=== PATIENT | male | born 1990 | race African-American/Black ===

== ENCOUNTER 2017-10-21 02:39 | Emergency (ER) | payer OTHER ==
--- NOTE | 2017-10-21 03:03 | PDOC ---
History of Present Illness - General Chief Complaint: Respiratory Stated Complaint: FEVER Time Seen by Provider: 10/21/17 02:55 History Source: Patient Exam Limitations: No Limitations - History of Present Illness Initial Comments: This is a 27 YOM with h/o heart murmur (diagnosed when he was a child and told it was benign) who p/w fever, nausea, mild frontal headache, head-to-toe body aches, malaise, feeling that he cannot completely empty his bladder, and worsened bloody bowel movements (has occasional mild rectal bleeding at baseline but had two BMs with large blood in toilet today). He notes measuring his oral temperature to be 104.4 at home today several hours after taking Advil , and this is what prompted him to come into the ED. His symptoms started about 24 hours ago, and prior to that he was feeling well except for seasonal allergies. He denies any known sick contacts. For the past two weeks he has been struggling with a back injury from working out at the gym and getting chiropractic adjustments for this. He denies any vomiting, diarrhea, constipation, chest pain, abdominal pain, SOB, cough, sore throat, burning/ strange smells/strange colors on urination, or other new symptoms. He denies drug use. Past History - Past Medical History Allergies/Adverse Reactions: Allergies Allergy/AdvReac Type Severity Reaction Status Date / Time No Known Allergies Allergy Verified 10/21/17 02:57 Home Medications: Ambulatory Orders NK [No Known Home Medication] 10/21/17 Review of Systems - Review of Systems Able to Perform ROS?: Yes Constitutional: Yes: Chills, Fever, Malaise. No: Unexplained wgt Loss HEENTM: No: Nose Congestion, Throat Pain Respiratory: No: Cough, Shortness of Breath Cardiac (ROS): No: Chest Pain, Palpitations ABD/GI: No: Constipated, Diarrhea, Nausea, Vomiting : No: Burning, Dysuria Musculoskeletal: Yes: Back Pain. No: Neck Pain Integumentary: No: Bruising, Rash Neurological: No: Headache, Numbness, Tingling, Weakness, Dizziness Endocrine: No: Unexplained Weight Gain, Unexplained Weight Loss *Physical Exam - Physical Exam General Appearance: Yes: Nourished, Appropriately Dressed, Mild Distress, Other (nontoxic and well appearing young adult male accompanied by father at bedside, warm to the touch, alert and oriented and answering questions appropriately) HEENT: positive: EOMI, Normal Voice, Hearing Grossly Normal. negative: Scleral Icterus (R), Scleral Icterus (L), Nasal Congestion Neck: positive: Trachea midline, Supple, Other (able to turn head 90 degrees to the right and left, look all the way up at the ceiling, and tuck his chin to his chest without issue or worsened pain). negative: Tender, Rigid Respiratory/Chest: positive: Lungs Clear, Normal Breath Sounds. negative: Respiratory Distress, Crackles, Rhonchi, Stridor, Wheezing Cardiovascular: positive: Regular Rhythm, Regular Rate, S1, S2. negative: Edema , JVD, Murmur Gastrointestinal/Abdominal: positive: Normal Bowel Sounds, Flat, Soft. negative : Tender, Organomegaly, Pulsatile Mass, Guarding Musculoskeletal: positive: Normal Inspection. negative: Decreased Range of Motion, Vertebral Tenderness Extremity: positive: Normal Capillary Refill, Normal Inspection, Normal Range of Motion. negative: Tender, Cyanosis Integumentary: positive: Normal Color, Dry, Warm. negative: Erythema, Rash, Bruising Neurologic: positive: inside sales trainer II-XII NML intact (grossly), Fully Oriented, Alert, Normal Mood/Affect, Normal Response, Motor Strength 5/5 Medical Decision Making - Medical Decision Making Young adult male patient p/w fever, nausea, head-to-toe body aches, worsened rectal bleeding. Initial Vital Signs Temp Pulse Resp BP Pulse Ox 101.4 F H 89 19 117/84 98 10/21/17 02:54 10/21/17 02:54 10/21/17 02:54 10/21/17 02:54 10/21/17 02:54 Exam: generally well appearing and nontoxic, warm to the touch, a/o x4 and answering appropriately, 2/6 systolic murmur. DDX IBNLT: viral syndrome, atypical PNA, meningitis, endocarditis, spinal epidural abscess, W/U ordered: TX ordered: EKG: CXR: Labs: CT: Repeat VS: Reassessment: ADMIT The patient is unsafe for discharge at this time. They require further hospital observation, workup, and treatment. Microblog sent to [facility] for admission. Spoke with [facility], in agreement patient to be admitted to: [id number] Decision to Admit order placed to [facility] covering attending. DISCHARGE The patient has gotten significant relief of symptoms with ED medications. Workup is not concerning for emergency-level pathology at this time. The patient is appropriate for discharge with close outpatient follow up. They are comfortable with this plan and will follow up with their PCP in 1-3 days. Return precautions are discussed and they will come back to the ER if necessary. 10/21/17 03:48 *DC/Admit/Observation/Transfer - Discharge Dispostion Condition at time of disposition: Fair - Referrals Referrals: ON STAFF,NOT [Primary Care Provider] - - Patient Instructions - Post Discharge Activity
[2017-10-21] MEDS ORDERED: ONDANSETRON 4 MG/2 ML VIAL IVPUSH ONE (03:11)
--- NOTE | 2017-10-21 03:13 | PDOC ---
Attending Attestation - Resident Resident Name: Oquendo,Tatiana - ED Attending Attestation I have performed the following: I have examined & evaluated the patient, The case was reviewed & discussed with the resident, I agree w/resident's findings & plan, Exceptions are as noted - HPI HPI: 10/21/17 03:12 27y M presents with fever, nausea, body aches, headache, malaise, urinary hesitancy with 2 BMs with bloody stool. no associated ovmiting, diarrhea, cough , sore throat, abd pain, diarrhea. No recent travel or known sick contacts. Pt notes he has a probably with constipation and typically has bloody stools after he strains, but does not recall straining today. on exam pt is well appearing in no distress, exam unremarakble beside warm skin normal ROM of neck, no signs of meningismus, neg kernigs/brudsinsky pulm exam cta abd soft nontender stool guaac multiple masses palable just proximal to anal verg, no external hemmroids noted, no stoolin rectal vault, but smear of blood on glove noted after retal exam cardiac exam no signfiicant MRGs ddx includes viral illness, occult infection including uti, pna will ck labs, lactic acid will hdyrate with fluids will give tylenol will reassess 10/21/17 05:39 lactic acid elevated to 2.4 labs otherwise unremabkle will continue fluid hydration and will recheck LA - Physicial Exam PE: 10/25/17 20:05 see above - Medical Decision Making lactic acid improved at discharge pt feeling improevd will dc back home with pm dfu and supportive care Heart Score/ECG Review - ECG Impressions Comment:: 10/21/17 05:28 Twelve-lead EKG was performed and reviewed by me. There is normal sinus rhythm with a normal rate. Rate of 70 TW abnormalities in the lateral leads
[2017-10-21] MEDS ORDERED: SODIUM CHLORIDE 0.9% 500 ML INFUS.BAG IV ONE ×2 (03:19→05:00)
[2017-10-21] MEDS ORDERED: ACETAMINOPHEN 1000 MG/100 ML VIAL (NON FORMULARY) IVPB ONE (03:19)
[2017-10-21] MEDS ORDERED: ACETAMINOPHEN INJECTION 100 ML IVPB ONE (03:42)
[2017-10-21 03:43] VITALS: BMI 27.7
[2017-10-21] MEDS ORDERED: ONDANSETRON 4 MG/2 ML VIAL ONE (03:43)
[2017-10-21 04:01] LABS: BASO % 0.5 % (0-2.0); EOS % 0.5 % (0-4.5); HEMOGLOBIN 14.5 GM/dL (11.7-16.9); LYMPH % 3.9 % (8-40); MCH 30.3 pg (25.7-33.7); MCHC 33.6 g/dl (32.0-35.9); MEAN CELL VOLUME 89.9 fl (80-96); MEAN PLT VOLUME 9.3 fl (7.5-11.1); MONO % 8.1 % (3.8-10.2); PLATELET COUNT 222 K/MM3 (134-434); RBC 4.78 M/mm3 (4.00-5.60); RDW 13.7 % (11.9-15.9)
[2017-10-21 04:03] LABS: URINE APPEARANCE CLEAR; URINE BILIRUBIN NEGATIVE (<2.0 mg/dL); URINE COLOR YELLOW; URINE GLUCOSE (UA) NEGATIVE (NEGATIVE); URINE KETONE NEGATIVE (NEGATIVE); URINE LEUK ESTERASE NEGATIVE (NEGATIVE); URINE NITRITE NEGATIVE (NEGATIVE); URINE PROTEIN NEGATIVE (NEGATIVE)
[2017-10-21 04:32] LABS: INR 1.24 (0.82-1.09)
[2017-10-21 04:43] LABS: ALBUMIN 3.9 g/dl (3.4-5.0); ALK PHOS 60 U/L (45-117); ANION GAP 6 (8-16); BILIRUBIN,TOTAL 0.6 mg/dL (0.2-1.0); BLOOD UREA NITROGEN 13 mg/dL (7-18); CALCIUM 8.2 mg/dL (8.5-10.1); CHLORIDE 105 mmol/L (98-107); CO2 28 mmol/L (21-32); CREATININE 1.1 mg/dL (0.7-1.3); GLUCOSE,RANDOM 89 mg/dL (74-106); MAGNESIUM 1.8 mg/dL (1.8-2.4); POTASSIUM 3.7 mmol/L (3.5-5.1); SGOT/AST 19 U/L (15-37); SGPT/ALT 29 U/L (12-78); SODIUM 139 mmol/L (136-145); TOT PROT 7.4 g/dl (6.4-8.2)
[2017-10-21] MEDS ORDERED: SODIUM CHLORIDE 1,000 ML IV STA (05:17)
--- NOTE | 2017-10-21 07:21 | PDOC ---
*Physical Exam - Vital Signs Last Vital Signs Temp Pulse Resp BP Pulse Ox 101.4 F H 89 19 117/84 98 10/21/17 02:54 10/21/17 02:54 10/21/17 02:54 10/21/17 02:54 10/21/17 02:54 ED Treatment Course - LABORATORY CBC & Chemistry Diagram: 10/21/17 03:50 10/21/17 03:50 - ADDITIONAL ORDERS Additional order review: Laboratory Results 10/21/17 10/21/17 10/21/17 05:22 03:50 03:50 PT with INR 14.00 H INR 1.24 H Sodium Potassium Chloride Carbon Dioxide Anion Gap BUN Creatinine Creat Clearance w eGFR Random Glucose Lactic Acid 2.4 H* Calcium Magnesium Total Bilirubin AST ALT Alkaline Phosphatase Total Protein Albumin Urine Color Urine Appearance Urine pH Ur Specific [place] Urine Protein Urine Glucose (UA) Urine Ketones Urine Blood Urine Nitrite Urine Bilirubin Urine Urobilinogen Ur Leukocyte Esterase Stool Occult Blood Positive 10/21/17 10/21/17 03:50 03:50 PT with INR INR Sodium 139 Potassium 3.7 Chloride 105 Carbon Dioxide 28 Anion Gap 6 L BUN 13 Creatinine 1.1 Creat Clearance w eGFR > 60 Random Glucose 89 Lactic Acid Calcium 8.2 L Magnesium 1.8 Total Bilirubin 0.6 AST 19 ALT 29 Alkaline Phosphatase 60 Total Protein 7.4 Albumin 3.9 Urine Color Yellow Urine Appearance Clear Urine pH 5.0 Ur Specific [place] 1.020 Urine Protein Negative Urine Glucose (UA) Negative Urine Ketones Negative Urine Blood Negative Urine Nitrite Negative Urine Bilirubin Negative Urine Urobilinogen 2.0 Ur Leukocyte Esterase Negative Stool Occult Blood 10/21/17 03:50 RBC 4.78 MCV 89.9 MCHC 33.6 RDW 13.7 MPV 9.3 Neutrophils % 87.0 H Lymphocytes % 3.9 L Monocytes % 8.1 Eosinophils % 0.5 Basophils % 0.5 - Medications Given in the ED: ED Medications Discontinued Medications Generic Name Dose Route Start Last Admin Trade Name Freq PRN Reason Stop Dose Admin Acetaminophen 1,000 mg 10/21/17 03:19 10/21/17 03:50 Ofirmev Injection - IVPB 10/21/17 03:20 1,000 mg ONCE ONE Administration Sodium Chloride 1,000 mls @ 1,000 mls/hr 10/21/17 05:17 10/21/17 05:28 Normal Saline - IV 10/21/17 06:16 1,000 mls/hr ASDIR STA Administration Ondansetron HCl 4 mg 10/21/17 03:11 10/21/17 03:50 Zofran Injection IVPUSH 10/21/17 03:12 4 mg NOW ONE Administration Sodium Chloride 1,000 ml 10/21/17 03:19 10/21/17 03:50 Normal Saline - IV 10/21/17 03:20 1,000 ml ONCE ONE Administration Sodium Chloride 1,000 ml 10/21/17 05:00 10/21/17 05:27 Normal Saline - IV 10/21/17 05:01 1,000 ml ONCE ONE Administration Medical Decision Making - Medical Decision Making Sign out given by Dr. Oquendo. 27 yo pt with frontal CHANG and diffuse myalgias. Lactate 2.4. Plan to finish IVFs and trend lactate with likely discharge home. 10/21/17 07:20 Flu swab negative. Repeat lactate 0.9. Discharge home with outpt follow-up with Dr. Christiansen. Pt VSS, no pain, counseled on discharge plan with all questions answered. 10/21/17 09:49 *DC/Admit/Observation/Transfer Diagnosis at time of Disposition: Rectal bleed, Viral syndrome - Discharge Dispostion Disposition: HOME Condition at time of disposition: Fair Decision to Admit order: No - Referrals Referrals: ON STAFF,NOT [Non Staff, Medical] - 1 week Pierre Christiansen MD [Staff Physician] - 1 week - Patient Instructions Printed Discharge Instructions: DI for Gastrointestinal Bleeding Additional Instructions: During your visit to the [facility] ED, you were evaluated for CHANG, fever/aches and blood in your stool. You received hydration and standard lab tests, which were relatively unremarkable. You are being discharged home with outpatient follow- up with your primary care provider and are being provided a referral to see our slag expander, Dr. Christiansen. Please take tylenol 650mg every four hours if you experience fevers or aches until your symptoms resolve. You are being provided a referral for follow-up with Dr. Christiansen, our slag expander for further evaluation of your chronic rectal bleeding. Please call the number provided in this packet to schedule an appointment within one week. If you experience any of the following symptoms, please return to the ED: - Persistent fevers/chills >3 days - Worsening rectal bleeding or persistent blood in your stool - Changes in vision, numbness/weakness in any extremities, or persistent dizziness/loss of consciousness - Any new or concerning symptoms - Post Discharge Activity
[2017-10-21 07:39] VITALS: TEMP 98.2
[2017-10-21 10:21] VITALS: BP 119/69; PULSE 75
--- NOTE | 2017-10-21 11:51 | EKG ---
Test Reason : Blood Pressure : / mmHG Vent. Rate : 052 BPM Atrial Rate : 052 BPM P-R Int : 162 ms QRS Dur : 096 ms QT Int : 482 ms P-R-T Axes : 047 039 021 degrees QTc Int : 448 ms SINUS BRADYCARDIA WITH SINUS ARRHYTHMIA NONSPECIFIC ST ABNORMALITY ABNORMAL ECG Confirmed by MD BENY, CHANDRAKANT ([id number]) on 10/21/2017 11:50:55 AM Referred By: Confirmed By:CHANDRAKANT SWAN MD
--- NOTE | 2017-10-21 11:52 | EKG ---
Test Reason : Blood Pressure : / mmHG Vent. Rate : 070 BPM Atrial Rate : 070 BPM P-R Int : 144 ms QRS Dur : 096 ms QT Int : 380 ms P-R-T Axes : 049 045 025 degrees QTc Int : 410 ms NORMAL SINUS RHYTHM T WAVE ABNORMALITY, CONSIDER LATERAL ISCHEMIA ABNORMAL ECG NO PREVIOUS ECGS AVAILABLE Confirmed by MD BENY, CHANDRAKANT ([id number]) on 10/21/2017 11:52:10 AM Referred By: Confirmed By:CHANDRAKANT SWAN MD
== END 2017-10-21 10:30 | disposition home or self-care (01) ==
LOC: SUPCPDRO 02:39 → JER 02:39
PROC: 3E0337Z Introduction of Electrolytic and Water Balance Substance into Peripheral Vein, Percutaneous Approach (ICD-10-PCS; principal; 2017-10-21)
PROC: 3E033NZ Introduction of Analgesics, Hypnotics, Sedatives into Peripheral Vein, Percutaneous Approach (ICD-10-PCS; 2017-10-21)
PROC: 3E033GC Introduction of Other Therapeutic Substance into Peripheral Vein, Percutaneous Approach (ICD-10-PCS; 2017-10-21)
DX: K62.5 Hemorrhage of anus and rectum (principal); B34.9 Viral infection, unspecified
CPT/HCPCS: 36415; 71045-TC-FY; 80053; 81003; 82272; 83605; 83735; 85025; 85610; 87040; 87086; 87804; 93005; 93010; 99284-25; J0131; J7030